=== PATIENT | male | born 1995 | race African-American/Black ===

== ENCOUNTER 2023-01-27 08:48 | Emergency (ER) | payer SELFPAY ==
[2023-01-27 08:56] VITALS: BP 134/79; PULSE 103; RESP 18; TEMP 98.1; BMI 18.4
== END 2023-01-27 11:18 | disposition home or self-care (01) ==
LOC: JERFT 08:48
DX: S81.811A Laceration without foreign body, right lower leg, initial encounter (principal); W26.8XXA Contact with other sharp object(s), not elsewhere classified, initial encounter
CPT/HCPCS: 73590-TC-RT-FY; 99283-25